=== PATIENT | female | born 1990 | race Caucasian/White ===

== ENCOUNTER 2019-06-22 16:57 | Emergency (ER) | payer SELFPAY ==
[2019-06-22] MEDS ORDERED: ACETAMINOPHEN 325 MG TABLET PO ONE (17:09)
--- NOTE | 2019-06-22 17:11 | ER Document Report ---
HPI - HPI Time Seen by Provider: 06/22/19 17:05 Notes: Patient is a 28-year-old female no significant past medical history aside from anxiety and depression who presents complaint of right lateral foot pain, swelling, bruising status post injury this morning. Patient states that her dog hit her in the side of the leg causing her foot to twist inward causing the pain and swelling. Patient states that she heard a "pop." She has been able to limp. She did take aspirin earlier today. Pain does not radiate. No other concerns or complaints. Denies any headache, fever, neck pain, URI, sore throat, chest pain, palpitations, syncope, cough, shortness of breath, wheeze, dyspnea, abdominal pain, nausea/vomiting/diarrhea, urinary retention, dysuria, hematuria, loss of control of bowel or bladder, numbness/tingling, muscle paralysis, or rash. - ROS Systems Reviewed and Negative: Yes All other systems reviewed and negative Past Medical History - Social History Smoking Status: Unknown if Ever Smoked Family History: Reviewed & Not Pertinent Vertical Provider Document - CONSTITUTIONAL Agree With Documented VS: Yes Notes: PHYSICAL EXAMINATION: GENERAL: Well-appearing, well-nourished and in no acute distress. LUNGS: Breath sounds clear to auscultation bilaterally and equal. No wheezes rales or rhonchi. HEART: Regular rate and rhythm without murmurs, rubs, gallops. Musculoskeletal: Rt foot/ankle: + swelling and ecchymosis rt lateral foot. FROM to passive/active. Strength 5+/5. N/V intact distal. + tenderness to the lateral foot. No bony tenderness of the ankle or tib/fibula. Achilles intact. Extremities: No cyanosis, clubbing, or edema b/l. Peripheral pulses 2+. Capillary refill less than 3 seconds. NEUROLOGICAL: Normal speech, limping gait. Normal sensory, motor exams PSYCH: Normal mood, normal affect. SKIN: Warm, Dry, normal turgor, no rashes or lesions noted. Course - Re-evaluation Re-evalutation: 06/22/19 17:33 Patient is an afebrile, well-hydrated, 28-year-old female who presents to the ED with a fracture to the Rt prox 5th metatarsal. Vitals are acceptable without any significant tachycardia, tachypnea, or hypoxia. PE is otherwise unremarkable for any neurovascular compromise, obvious tendon/ligament rupture, open fracture, septic joint. See XR result. Splint applied today and crutches provided. Tylenol given PO. Patient is nontoxic-appearing. No other labs or imaging warranted at this time based on H&P. Conservative measures otherwise for symptoms. Recheck with your PCM in 3-5 days. Call podiatry/orthopedics tomorrow to schedule an appointment for further evaluation and management. Return to the ED with any worsening/concerning symptoms otherwise as reviewed in discharge. Patient is in agreement. Procedures - Immobilization Right Ankle Pre-Proc Neuro Vasc Exam: Normal Immobilizer type: Posterior ankle Performed by: PCT Post-Proc Neuro Vasc Exam: Normal, Unchanged from pre-exam Discharge - Discharge Clinical Impression: Fracture of fifth metatarsal bone of right foot Qualifiers: Encounter type: initial encounter Fracture type: closed Fracture alignment: nondisplaced Qualified Code(s): S92.354A - Nondisplaced fracture of fifth metatarsal bone, right foot, initial encounter for closed fracture Condition: Stable Disposition: HOME, SELF-CARE Additional Instructions: Rest, Ice, Compression, Elevation Use crutches/splint as directed Tylenol/ibuprofen as needed F/u with your PCP in 3-5 days for a recheck Call orthopedics/podiatry tomorrow to schedule an appointment for further evaluation and management Return to the ED with any worsening symptoms and/or development of fever, headache, chest pain, palpitations, syncope, shortness of breath, trouble breathing, abdominal pain, n/v/d, muscle weakness/paralysis, numbness/tingling, swelling, redness, or other worsening symptoms that are concerning to you. Prescriptions: Tramadol HCl [Ultram 50 mg Tablet] 50 mg PO TID #15 tab Referrals: DANIELLE BLOOM JR, DO [ACTIVE PROVISIONAL STAFF] - Follow up as needed KATT SALTER DPM [ACTIVE STAFF] - Follow up in 3-5 days
--- NOTE | 2019-06-22 17:32 | RADIOLOGY REPORT (SQ) ---
EXAM DESCRIPTION: FOOT RIGHT COMPLETE COMPLETED DATE/TIME: 06/22/2019 5:24 pm REASON FOR STUDY: lateral foot pain/swelling s/p injury COMPARISON: None. NUMBER OF VIEWS: Three views. TECHNIQUE: AP, lateral and oblique radiographic images acquired of the right foot. LIMITATIONS: None. FINDINGS: MINERALIZATION: Normal. BONES: Oblique comminuted fracture base of the 5th metatarsal. JOINTS: No effusions. SOFT TISSUES: No soft tissue swelling. No foreign body. OTHER: No other significant finding. IMPRESSION: Oblique comminuted fracture base of the 5th metatarsal. TECHNICAL DOCUMENTATION: JOB ID: [id number] [employer]- All Rights Reserved Reading location - IP/workstation name: [email or web address]
[2019-06-22 18:23] VITALS: BP 137/76
== END 2019-06-22 18:19 | disposition home or self-care (01) ==
LOC: ER 16:57
DX: S92.354A Nondisplaced fracture of fifth metatarsal bone, right foot, initial encounter for closed fracture (principal); W54.1XXA Struck by dog, initial encounter
CPT/HCPCS: 99283